=== PATIENT | male | born 1970 | race Two or more races ===

== ENCOUNTER → 2024-02-04 | Outpatient (CLI) | payer BC, SELFPAY ==
[2024-02-04 08:36] LABS: Basophils # (Auto) 0.1 Thou/mm3 (0.0-0.2); Basophils % (Auto) 1 % (0-2.5); Eosinophils # (Auto) 0.1 Thou/mm3 (0.0-0.5); Eosinophils % (Auto) 1 % (0-10); Hematocrit 41.4 % (41.0-53.0); Hemoglobin 14.2 g/dL (13.5-16.0); Immature Granulocytes % (Auto) 1 % (0-0); Immature Granulocytes Auto 0.04 Thou/mm3 (0.00-0.00); Lymphocytes # (Auto) 1.1 Thou/mm3 (1.0-4.8); Lymphocytes % (Auto) 21 % (10-50); Mean Corpuscular HGB Conc 34.3 g/dl (31.0-37.0); Mean Corpuscular Hemoglobin 30.6 pg (25.0-35.0); Mean Corpuscular Volume 89 fL (80-100); Monocytes # (Auto) 0.8 Thou/mm3 (0.0-0.8); Monocytes % (Auto) 15 % (0-12); Neutrophils # (Auto) 3.2 Thou/mm3 (1.8-7.7); Neutrophils % (Auto) 61 % (37-80); Nucleated Red Blood Cell % 0 /100 WBC (0); Platelet Count 357 Thou/mm3 (140-440); RDW Standard Deviation 41.6 fL (35.1-43.9); Red Blood Count 4.64 Miln/mm3 (4.50-5.90); White Blood Count 5.3 Thou/mm3 (3.8-10.6)
[2024-02-04 08:52] LABS: Alanine Aminotransferase 26 U/L (10-49); Albumin, Serum 4.5 gm/dL (3.5-5.0); Albumin/Globulin Ratio 1.7 (1.2-2.2); Alkaline Phosphatase 83 U/L (46-116); Anion Gap 9 (7-16); Aspartate Amino Transferase 29 U/L (0-34); BUN/Creatinine Ratio 12 Ratio (12-20); Bilirubin,Total 0.4 mg/dL (0.3-1.2); Blood Urea Nitrogen 12 mg/dL (9-23); Calcium 9.9 mg/dL (8.3-10.6); Calcium (Corrected) 9.9 mg/dL (8.5-10.1); Carbon Dioxide 23.5 mMol/L (20.0-31.0); Chloride 105 mMol/L (98-107); Globulin 2.6 gm/dL (2.3-3.5); Glucose 94 mg/dL (74-106); Osmolality,Calculated 273 (275-295); Potassium 4.2 mMol/L (3.4-5.1); Sodium 137 mMol/L (136-145); Total Protein 7.1 gm/dL (5.7-8.2); eGFR > 60 See Note
[2024-02-04 08:55] LABS: Carcinoembryonic Antigen 1.1 ng/mL (0.0-5.0)
== END | disposition home or self-care (01) ==
PROVIDERS: PCP Internal Medicine; Referring Provider Internal Medicine Hematology & Oncology; Visit Provider Internal Medicine Hematology & Oncology
DX: C20 Malignant neoplasm of rectum (principal)
CPT/HCPCS: 36415; 80053; 82378; 85025

== ENCOUNTER 2024-02-08 15:25 | Outpatient (RCR) | payer BC, SELFPAY ==
--- NOTE | 2024-02-13 23:02 | CTCFLWUP_ITS ---
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 Status post rectosigmoidectomy followed by adjuvant chemotherapy. REASON FOR TODAY?S VISIT: This is office follow-up visit. Mr. Romo is here at [facility]. He is clinically doing very well. Denies any complaints. Denies any cough, chest pain, abdominal pain or leg cramps. Has good appetite and good energy levels. Working full-t [employer] without any weakness or fatigue. HISTORY OF PRESENT ILLNESS: Davie Romo is a 50-year-old Citizen [place]-speaking male working for the [employer] has following oncology history. 12/27/2017: Patient had colonoscopy done for a history of rectal bleeding of 1 week duration. Colonos copy showed a polypoid lesion occupying 25-49% of the circumference of the rectum, 10 cm from the entry site. It w as causing ulcerated narrowing. Biopsies showed villous adenoma with at least high-grade dysplasia. 01/06/2018: Patient had a flexible sigmoidoscopy and heart snare biopsy. Biopsy specimen showed inv asive moderately differentiated adenocarcinoma arising in tubulovillous adenoma. No loss of mismatch repai r protein expression on immunohistochemistry staining was noted. 01/10/2018: A CT scan of the abdomen and pelvis with and without contrast was obtained which showed a 1.5 cm focal enhancing soft tissue density in the distal sigmoid colonic lumen. No lymphadenopathy was visible. 01/17/2018: Patient is referred to medical oncology for consultation. I am seeing the patient for th e first time today. He still has mild rectal bleeding occasionally. 01/29/2018: Patient had a PET/CT scan done which showed a hypermetabolic area in the lower sigmoid co mingo with an SUV of 7.6. It also showed 7 mm, 2 mm non-hypermetabolic pulmonary nodules in the right lung. 04/07/2018: CT-guided biopsy of the right lower lobe lung lesion came back negative for malignancy. 04/13/2018: Patient had difficult rectosigmoidectomy with coloproctostomy, diverting loop ileostomy, i ncidental appendectomy and repair of incarcerated umbilical hernia. Surgical pathology specimen showed 3.5 x 3 x 1 cm rectal adenocarcinoma, moderately differentiated wi th tumor penetration of muscularis propria and involvement of subserosal tissue. Lymphovascular inva yareli was negative. Perineural invasion is negative. 16 lymph nodes were negative. MMR testing show ed no loss of expression. Case was discussed with Dr. Dc. Apparently Dr. Dc talked to Dr. Davies. 07/20/2018: Patient had reversal of the colostomy without any complications 06/06/2018?08/17/2018: Patient received 3 doses of modified FOLFOX 6. 09/05/2018?10/14/2018: Patient had chemoradiation. For the chemotherapy he had a continuous infusion o f 5-FU. 10/31/2018? 12/26/2018: Patient received adjuvant FOLFOX chemotherapy. 01/11/2019: Patient had a repeat colonoscopy done by Dr. Davies at [facility]. 04/19/2019: CEA less than 0.5. 10/23/2019: CEA 1.2 04/29/2019: CEA 0.6. 09/04/2020: CT scan of the chest abdomen and pelvis with IV contrast? 10/18/2020: CEA 1.1. 02/19/2021: CEA 0.6. 03/09/2002 1: CT scan of the chest without contrast 06/25/2021: CEA 0.8. PAST MEDICAL HISTORY: PAST SURGICAL HISTORY: MEDICATIONS: 1. ?Palabra Meds? ALLERGIES: No Known Drug Allergies REVIEW OF SYSTEMS:?Clone ROS? Neurological: No headache, seizures or blurring of vision. Gastrointestinal: No nausea, vomiting, diarrhea or constipation. Cardiovascular: No palpitations or angina pains. Respiratory: No cough, chest pain or shortness of breath. PHYSICAL EXAMINATION:?ClonePE? VITAL SIGNS: Temperature?99.7, B/P?151/99, Oxygen?Saturation?95% Weight?204?lbs PAIN: 0 - No pain Conjunctive is pink. Neck is supple. No adenopathy in the neck, axilla or inguinal region. Chest clear to auscultation. No wheezes or rails audible. CVS rhythm regular. No murmurs or gallops present. Abdomen is soft. No hepatosplenomegaly palpable. Extremities no clubbing or cyanosis. LABORATORY DATA: Date Time ASSESSMENT: The patient is clinically doing very well without any complaints. No clinical evidence of recurrence of his rectal adenocarcinoma. CEA 0.8. Stage IIa (T3N0M0) moderately differentiated rectal adenocarcinoma. Status post rectosigmoidectomy. Status post adjuvant modified FOLFOX chemotherapy. No residual side effects PLAN: No specific intervention today. I will see him back in clinic in 6 months with CBC, CMP, CEA done few days prior to the visit. Electronically Signed by: {Object.Sanct_ID*PnP.NameFL@M}, {Object.Sanct_ID*PnP.Suffix@U} D: {Object.Sanct_Date} T: {Object.Sanct_Time} CC: Bud?Kamran,? PCP: Bud Andrew Referring: Bud Andrew This document was completed utilizing speech recognition software. Grammatical errors, random word in sertions, pronoun errors, and incomplete sentences are an occasional consequence of this system due t o software limitations, ambient noise, and hardware issues. Any formal questions or concerns about th e content, text or information contained within the body of this dictation should be directly address ed to the provider for clarification.
== END 2024-02-19 23:59 | disposition home or self-care (01) ==
LOC: SCTC 15:25
PROVIDERS: PCP Internal Medicine; Referring Provider Internal Medicine; Visit Provider Internal Medicine Hematology & Oncology
DX: Z08 Encounter for follow-up examination after completed treatment for malignant neoplasm (principal); Z85.048 Personal history of other malignant neoplasm of rectum, rectosigmoid junction, and anus; Z90.49 Acquired absence of other specified parts of digestive tract; Z92.21 Personal history of antineoplastic chemotherapy
CPT/HCPCS: 99212; G0463

== ENCOUNTER → 2024-03-03 | Outpatient (CLI) | payer BC, SELFPAY ==
[2024-03-03 15:50] LABS: Post Vasectomy Sperm Presence No Spermatozoa Seen (No Sperm)
== END | disposition home or self-care (01) ==
LOC: SLDO 14:56
PROVIDERS: PCP Internal Medicine; Referring Provider Internal Medicine; Visit Provider Internal Medicine
DX: Z31.41 Encounter for fertility testing (principal)
CPT/HCPCS: 89321

== ENCOUNTER 2024-08-07 15:26 | Outpatient (RCR) | payer BC, SELFPAY ==
--- NOTE | 2024-08-15 09:08 | CTCFLWUP_ITS ---
Patient: DAVIE ROMO : 1970 Page 4 of 5 FOLLOW UP NOTE DATE OF SERVICE: 08/07/2024 NAME: DAVIE ROMO ACCOUNT: [id number] : 1970 AGE: 53 INTERVAL HISTORY: Chief Complaint Follow-up for stage 2 rectal adenocarcinoma treated in 2019 History of Present Illness Demetrius Broderick is a patient with a history of stage 2 moderately differentiated adenocarcinoma of the rectum diagnosed in 2019, presenting for follow-up. The patient underwent rectosigmoidectomy followed by adjuvant chemotherapy in 2019. The patient reports no new symptoms or concerns related to their cancer history. They have been adherent to their follow-up schedule, including regular colonoscopies. The patient had a colonoscopy a couple of months ago, which showed good results according to the rehabilitation manager. The rehabilitation manager recommended follow-up colonoscopies every 5 years. The patient's blood pressure is noted to be elevated at 157/108, which is a new finding since the last visit. The patient has not reported any symptoms related to hypertension. Medications and Supplements - Baby aspirin - Beneficial for preventing heart attacks, strokes, and helps with colon cancer. 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 Status post rectosigmoidectomy followed by adjuvant chemotherapy. REASON FOR TODAY?S VISIT: This is office follow-up visit. Mr. Romo is here at [facility]. He is clinically doing very well. Denies any complaints. Denies any cough, chest pain, abdominal pain or leg cramps. Has good appetite and good energy levels. Working full-time without any weakness or fatigue. Malignant neoplasm of rectum [ICD10] C20 DATE OF DIAGNOSIS: STAGE/TNM: TREATMENT HISTORY: Care?Plan Start?Date Cycle Day Intent CONT?5FU?225/?mg/?m*2/?day?x?5?days 05/10/2018 1 7 Curative?(adjuvant) Ichlul-qVJPRAM-5?-?5FU?400?+?2400?CIV,?LVR?400,?OXALIplat?85 06/06/2018 1 14 Curative?(adjuvant) 5FU?225?mg/m*2/day?5?day?civ?with?xrt?1 09/25/2018 3 7 Curative?(adjuvant) HISTORY OF PRESENT ILLNESS: Davie Romo is a 53-year-old [place]-speaking male working for the [employer] has following oncology history. 12/27/2017: Patient had colonoscopy done for a history of rectal bleeding of 1 week duration. Colonoscopy showed a polypoid lesion occupying 25-49% of the circumference of the rectum, 10 cm from the entry site. It was causing ulcerated narrowing. Biopsies showed villous adenoma with at least high-grade dysplasia. 01/06/2018: Patient had a flexible sigmoidoscopy and heart snare biopsy. Biopsy specimen showed invasive moderately differentiated adenocarcinoma arising in tubulovillous adenoma. No loss of mismatch repair protein expression on immunohistochemistry staining was noted. 01/10/2018: A CT scan of the abdomen and pelvis with and without contrast was obtained which showed a 1.5 cm focal enhancing soft tissue density in the distal sigmoid colonic lumen. No lymphadenopathy was visible. 01/17/2018: Patient is referred to medical oncology for consultation. I am seeing the patient for the first time today. He still has mild rectal bleeding occasionally. 01/29/2018: Patient had a PET/CT scan done which showed a hypermetabolic area in the lower sigmoid colon with an SUV of 7.6. It also showed 7 mm, 2 mm non-hypermetabolic pulmonary nodules in the right lung. 04/07/2018: CT-guided biopsy of the right lower lobe lung lesion came back negative for malignancy. 04/13/2018: Patient had difficult rectosigmoidectomy with coloproctostomy, diverting loop ileostomy, incidental appendectomy and repair of incarcerated umbilical hernia. Surgical pathology specimen showed 3.5 x 3 x 1 cm rectal adenocarcinoma, moderately differentiated with tumor penetration of muscularis propria and involvement of subserosal tissue. Lymphovascular invasion was negative. Perineural invasion is negative. 16 lymph nodes were negative. MMR testing showed no loss of expression. Case was discussed with Dr. Dc. Apparently Dr. Dc talked to Dr. Davies. 07/20/2018: Patient had reversal of the colostomy without any complications 06/06/2018?08/17/2018: Patient received 3 doses of modified FOLFOX 6. 09/05/2018?10/14/2018: Patient had chemoradiation. For the chemotherapy he had a continuous infusion of 5-FU. 10/31/2018? 12/26/2018: Patient received adjuvant FOLFOX chemotherapy. 01/11/2019: Patient had a repeat colonoscopy done by Dr. Davies at [facility]. 04/19/2019: CEA less than 0.5. 10/23/2019: CEA 1.2 04/29/2019: CEA 0.6. 09/04/2020: CT scan of the chest abdomen and pelvis with IV contrast? 10/18/2020: CEA 1.1. 02/19/2021: CEA 0.6. 03/09/2002 1: CT scan of the chest without contrast 06/25/2021: CEA 0.8. OTHER MEDICAL HISTORY/CONDITIONS: FAMILY HISTORY: SOCIAL HISTORY: MEDICATIONS: 1. None Medications Last Reconciled by Jade Traylor MA on 08/07/2024 ALLERGIES: No Known Drug Allergies REVIEW OF SYSTEMS: A complete 14-point review of systems was performed and is negative except as noted in interval history. PHYSICAL EXAMINATION: VITAL SIGNS: Temperature?98.2, B/P?157/108, Oxygen?Saturation?97% Weight?202?lbs PAIN: 0 - No pain ECOG Performance Status: 0 - Asymptomatic and fully active Conjunctive is pink. Neck is supple. No adenopathy in the neck, axilla or inguinal region. Chest clear to auscultation. No wheezes or rails audible. CVS rhythm regular. No murmurs or gallops present. Abdomen is soft. No hepatosplenomegaly palpable. Extremities no clubbing or cyanosis. LABORATORY DATA: I have personally reviewed and interpreted each of the patient?s relevant lab tests, abnormal findings are below: Date 02/04/24 08/07/24 ??WHITE?BLOOD?COUNT?(Thou/mm3) 5.3 7.2 ??RED?BLOOD?COUNT?(Miln/mm3) 4.64 4.63 ??HEMOGLOBIN?(gm/dl) 14.2 14.5 ??HEMATOCRIT?(%) 41.4 42.3 ??PLATELET?COUNT?(Thou/mm3) 357 323 ??NEUTROPHILS?%,?AUTO?(%) 61 71 ??LYMPH?%,?AUTO?(%) 21 14 ??NEUTROPHILS,?AUTO?(Thou/mm3) 3.2 5.1 ??GLUCOSE,RANDOM?(mg/dL) ? 124?H ??BLOOD?UREA?NITROGEN?(mg/dL) ? 17 ??CREATININE?(mg/dL) ? 1.00 ??SODIUM?(mmol/L) ? 141 ??POTASSIUM?(mmol/L) ? 3.9 ??CHLORIDE?(mmol/L) ? 106 ??CrCl?(CandG)?(ml/min) ? 92.32 ??AST/SGOT?(Unit/L) ? 17 ??ALT/SGPT?(Unit/L) ? 18 ??ALKALINE?PHOSPHATASE?(Unit/L) ? 75 ??BILIRUBIN,?TOTAL?(mg/dL) ? 0.4 ??PROTEIN?TOTAL?(gm/dl) ? 6.8 ??ALBUMIN,?SERUM?(gm/dl) ? 4.1 ??GLOBULIN?(gm/dl) ? 2.7 ??ALBUMIN/GLOBULIN?RATIO ? 1.5 ??CALCIUM,?SERUM?(mg/dL) ? 8.8 ??CALCIUM?SERUM?(CORRECTED)?(mg/dL) ? 8.8 ??CEA?(O*)?(ng/ml) ? 1.1 ASSESSMENT/PLAN: The patient is clinically doing very well without any complaints. No clinical evidence of recurrence of his rectal adenocarcinoma. CEA 0.8. Stage IIa (T3N0M0) moderately differentiated rectal adenocarcinoma. Status post rectosigmoidectomy. Status post adjuvant modified FOLFOX chemotherapy. No residual side effects Demetrius Broderick, a patient with a history of stage 2 moderately differentiated adenocarcinoma of the rectum diagnosed in 2019, presents for follow-up after rectosigmoidectomy and adjuvant chemotherapy. Stage 2 moderately differentiated adenocarcinoma of the rectum, status post rectosigmoidectomy and adjuvant chemotherapy Assessment: Patient was diagnosed with stage 2 moderately differentiated adenocarcinoma of the rectum in 2019. Treatment included rectosigmoidectomy followed by adjuvant chemotherapy. Recent tumor marker results are favorable at 1.1. Patient underwent colonoscopy a couple of months ago, which showed good results. The patient is currently in the surveillance phase of treatment, approaching the end of the intensive 5-year follow-up period ([id number]). Plan: - Continue surveillance with follow-ups every 6 months to 1 year until 2024 - Implement Yamilet genetic blood test for colon cancer monitoring - First test to be done in clinic - Subsequent tests can be done at home every 3 months - Patient to create an account with [employer] for result reporting - Continue regular colonoscopies as recommended by rehabilitation manager - Return to clinic in one year or immediately if Yamilet test is positive - Dietary recommendations: - Reduce red meat consumption - Increase intake of green leafy vegetables, nuts, and anti-inflammatory foods (e.g., raza, garlic) - Avoid processed foods and fast food - Prioritize fresh food - Consider daily baby aspirin if no contraindications Hypertension Assessment: Patient's blood pressure is significantly elevated at 157/108 mmHg, indicating hypertension. This level of hypertension poses a risk for permanent damage to blood vessels if left uncontrolled. Plan: - Follow up with primary care provider (PCP) for hypertension management - Monitor blood pressure at home regularly - Implement lifestyle modifications (diet, exercise) as part of overall health management ORDERS: Order # Description RETURN TO CLINIC: BILLING AND COMPLIANCE: I reviewed external records from providers outside my specialty as summarized above. I spent a total of 50 minutes on this patient?s care on the day of their visit excluding time spent related to any billed procedures. This time includes time spent with the patient as well as time spent documenting in the medical record, reviewing patients records and tests, obtaining history, placing orders, communicating with other healthcare professionals, counseling the patient, family or caregiver, and/or care coordination for the diagnoses above. Electronically Signed by: {Object.Sanct_ID*PnP.NameFL@M}, {Object.Sanct_ID*PnP.Suffix@U} D: {Object.Sanct_Date} T: {Object.Sanct_Time} CC: Bud?PILAR Andrew PCP: Bud Andrew Referring: Bud Andrew This document was completed utilizing speech recognition software. Grammatical errors, random word insertions, pronoun errors, and incomplete sentences are an occasional consequence of this system due to software limitations, ambient noise, and hardware issues. Any formal questions or concerns about the content, text or information contained within the body of this dictation should be directly addressed to the provider for clarification.
== END 2024-08-19 23:59 | disposition home or self-care (01) ==
LOC: SCTC 15:26
PROVIDERS: PCP Internal Medicine; Referring Provider Internal Medicine; Visit Provider Internal Medicine Hematology & Oncology
DX: Z08 Encounter for follow-up examination after completed treatment for malignant neoplasm (principal); Z85.048 Personal history of other malignant neoplasm of rectum, rectosigmoid junction, and anus; Z90.49 Acquired absence of other specified parts of digestive tract; Z92.21 Personal history of antineoplastic chemotherapy; I10 Essential (primary) hypertension
CPT/HCPCS: 99212; G0463

== ENCOUNTER → 2024-08-07 | Outpatient (CLI) | payer BC, SELFPAY ==
[2024-08-07 08:43] LABS: Basophils # (Auto) 0.1 Thou/mm3 (0.0-0.2); Basophils % (Auto) 1 % (0-2.5); Eosinophils # (Auto) 0.1 Thou/mm3 (0.0-0.5); Eosinophils % (Auto) 1 % (0-10); Hematocrit 42.3 % (41.0-53.0); Hemoglobin 14.5 g/dL (13.5-16.0); Immature Granulocytes % (Auto) 0 % (0-0); Immature Granulocytes Auto 0.03 Thou/mm3 (0.00-0.00); Lymphocytes % (Auto) 14 % (10-50); Mean Corpuscular HGB Conc 34.3 g/dl (31.0-37.0); Mean Corpuscular Hemoglobin 31.3 pg (25.0-35.0); Mean Corpuscular Volume 91 fL (80-100); Monocytes # (Auto) 0.9 Thou/mm3 (0.0-0.8); Monocytes % (Auto) 12 % (0-12); Neutrophils # (Auto) 5.1 Thou/mm3 (1.8-7.7); Neutrophils % (Auto) 71 % (37-80); Nucleated Red Blood Cell % 0 /100 WBC (0); Platelet Count 323 Thou/mm3 (140-440); RDW Standard Deviation 42.1 fL (35.1-43.9); Red Blood Count 4.63 Miln/mm3 (4.50-5.90); White Blood Count 7.2 Thou/mm3 (3.8-10.6)
[2024-08-07 08:57] LABS: Carcinoembryonic Antigen 1.1 ng/mL (0.0-5.0)
[2024-08-07 09:02] LABS: Alanine Aminotransferase 18 U/L (10-49); Albumin, Serum 4.1 gm/dL (3.5-5.0); Albumin/Globulin Ratio 1.5 (1.2-2.2); Alkaline Phosphatase 75 U/L (46-116); Anion Gap 10 (7-16); Aspartate Amino Transferase 17 U/L (0-34); BUN/Creatinine Ratio 17 Ratio (12-20); Bilirubin,Total 0.4 mg/dL (0.3-1.2); Blood Urea Nitrogen 17 mg/dL (9-23); Calcium 8.8 mg/dL (8.3-10.6); Calcium (Corrected) 8.8 mg/dL (8.5-10.1); Carbon Dioxide 25.3 mMol/L (20.0-31.0); Chloride 106 mMol/L (98-107); Globulin 2.7 gm/dL (2.3-3.5); Glucose 124 mg/dL (74-106); Osmolality,Calculated 283 (275-295); Potassium 3.9 mMol/L (3.4-5.1); Sodium 141 mMol/L (136-145); Total Protein 6.8 gm/dL (5.7-8.2); eGFR > 60 See Note
== END | disposition home or self-care (01) ==
LOC: SCTO 06:47
PROVIDERS: PCP Internal Medicine; Referring Provider Internal Medicine Hematology & Oncology; Visit Provider Internal Medicine Hematology & Oncology
DX: C20 Malignant neoplasm of rectum (principal)
CPT/HCPCS: 36415; 80053; 82378; 85025

== ENCOUNTER 2024-08-24 08:21 | Outpatient (RCR) | payer BC, SELFPAY | END 2024-09-18 23:59 | disposition home or self-care (01) | LOC: SCTC 08:21 | PROVIDERS: PCP Internal Medicine; Referring Provider Internal Medicine; Visit Provider Internal Medicine Hematology & Oncology | DX: Z85.048 Personal history of other malignant neoplasm of rectum, rectosigmoid junction, and anus (principal); Z90.49 Acquired absence of other specified parts of digestive tract | CPT/HCPCS: 36415 ==

== ENCOUNTER → 2024-12-22 | Outpatient (CLI) | payer BC, SELFPAY ==
[2024-12-22 09:56] LABS: Prostate Specific Antigen 1.58 ng/mL (0-4.00)
== END | disposition home or self-care (01) ==
LOC: COPL 07:58
PROVIDERS: PCP Internal Medicine; Referring Provider Internal Medicine; Visit Provider Internal Medicine
DX: N40.0 Benign prostatic hyperplasia without lower urinary tract symptoms (principal)
CPT/HCPCS: 36415; 84153